=== PATIENT | male | born 1960 | race Caucasian/White ===

== ENCOUNTER → 2017-09-24 | Outpatient (CLI) | payer OTHER | LOC: CPRE 11:46 | PROVIDERS: ATTEND Orthopaedic Surgery Sports Medicine | DX: M16.11 Unilateral primary osteoarthritis, right hip (principal) ==

== ENCOUNTER 2017-10-11 05:05 | Inpatient (IN) | payer OTHER ==
[~2017-10-11] VITALS: Ht 165.1 cm; Wt 91.0 kg
[2017-10-11] MEDS ORDERED: SODIUM CHLORID 0.9% 500 ML IV PRN (05:45)
[2017-10-11] MEDS ORDERED: POVIDONE IODINE 5% (ANTISEPSIS KIT) 4 APPLICATIONS EACH NARE PRN (05:45)
[2017-10-11] MEDS ORDERED: EXPAREL PERI-ARTICULAR INJECTION (TOTAL VOL. 60 ML) P-ARTICULR SCH ×2 (05:45)
[2017-10-11] MEDS ORDERED: TRANEXAMIC PERI-ARTICULAR 3,000 MG/NS 100 ML P-ARTICULR SCH ×2 (05:45)
[2017-10-11] MEDS ORDERED: CHLORHEXIDINE GLUCONATE 2 % 1 PACK (2 CLOTHS) TOPICAL PRN (05:45)
[2017-10-11] MEDS ORDERED: POVIDONE IODINE 7.5% SCRUB 118 ML BOTTLE TOPICAL SCH (05:45)
[2017-10-11] MEDS ORDERED: ceFAZolin 2 GM PREMIX 50 ML IV SCH (05:45)
[2017-10-11] MEDS ORDERED: VANCOMYCIN 1000 MG/NS 250 ML (for <70 kg) IV SCH ×2 (05:45)
[2017-10-11] MEDS ORDERED: METOPROLOL TARTRATE 25 MG TAB PO PRN (05:45)
[2017-10-11] MEDS ORDERED: LACTATED RINGER'S 1000 ML IV PRN (05:45)
[2017-10-11] MEDS ORDERED: CHLORHEXIDINE GLUCONATE 4% SOLN 120 ML BTL TOPICAL SCH (05:45)
[2017-10-11] MEDS ORDERED: DEXAMETHASONE SOD PHOS 20 MG/5 ML VIAL IV PUSH SCH (05:45)
[2017-10-11] MEDS ORDERED: GENTAMICIN SULFATE 80 MG/2 ML VIAL ONE (06:15)
[2017-10-11] MEDS ORDERED: ACETAMINOPHEN 1000 MG/100 ML 100 ML IV ONE (06:41)
[2017-10-11] MEDS ORDERED: FAMOTIDINE 20 MG/2 ML VIAL ONE (06:41)
[2017-10-11] MEDS ORDERED: HYDR-3288 PO (06:56)
[2017-10-11] MEDS ORDERED: ASPI81CH6 CHEW (06:57)
[2017-10-11] MEDS ORDERED: TRANEXAMIC ACID INJ 1,400 MG in SODIUM CHLORIDE 0.9% INJ 100 ML IV SCH (07:00)
--- NOTE | 2017-10-11 07:01 | HHI.DCPOC ---
Discharge Care Plan Diagnosis: (1) Primary localized osteoarthrosis, pelvic region and thigh Your Health Problems Are: Difficulty with ADL Goals to Promote Your Health * To prevent worsening of your condition and complications * To maintain your health at the optimal level Directions to Meet Your Goals Take your medications as prescribed Follow your dietary instruction Follow activity as directed Keep your appointments as scheduled Take your immunizations and boosters as scheduled If your symptoms worsen call your PCP, if no PCP go to Urgent Care Center or Emergency Room Smoking is Dangerous to Your Health. Avoid second hand smoke Call the 24-hour hour crisis hotline for domestic abuse at Alphonso Verma Oct 11, 2017 07:01
--- NOTE | 2017-10-11 07:01 | HHI.FF ---
Face to Face Verification Diagnosis: (1) Primary localized osteoarthrosis, pelvic region and thigh Physical Therapy Gait training, Safety evaluation, Transfer training, bed to chair Hip: Total hip, Protocol: Right Right LE Weight Bearing: WB as tolerated Nursing RN: 3 days/week x 2 weeks Nursing: Dressing changes Dressing Changes: Daily dressing change I have seen patient Migue Escalante on 10/11/17. My clinical findings support the need for the requested home health care services because: Limited ability to care for self High risk of falls I certify that my clinical findings support that this patient is homebound because: Post-op weakness Unsteady gait/balance Alphonso Verma Oct 11, 2017 07:01
[2017-10-11] MEDS ORDERED: ACETAMINOPHEN/HYDROcodone 325 MG/10 MG TAB PO PRN (07:30)
[2017-10-11] MEDS ORDERED: diphenhydrAMINE HCL 50 MG/ML VIAL IV PUSH PRN (07:30)
[2017-10-11] MEDS ORDERED: ONDANSETRON HCL 4 MG/2 ML VIAL IVP PRN (07:30)
[2017-10-11] MEDS ORDERED: MORPHINE SULFATE 4 MG/ML INJ IV PUSH PRN (07:30)
[2017-10-11] MEDS ORDERED: BISACODYL 10 MG SUPP RECTAL PRN (07:45)
[2017-10-11] MEDS ORDERED: Post-op Orders (for Pharmacy) XX ONE (08:00)
[2017-10-11] MEDS ORDERED: *MEPERIDINE 25 MG INJ VIAL PERIprocedural Use ONLY ONE (09:12)
[2017-10-11] MEDS ORDERED: *ONDANSETRON 4 MG VIAL PERIprocedural Use ONLY ONE (09:15)
--- NOTE | 2017-10-11 09:15 | RADRPT ---
EXAM DATE/TIME: 10/11/2017 07:25 [facility] COMPARISON: No previous studies available for comparison. INDICATIONS : Right total hip replacement. MEDICAL HISTORY : None. SURGICAL HISTORY : None. ENCOUNTER: Initial ACUITY: 1 day PAIN SCORE: Non-responsive. LOCATION: Right Hip FINDINGS: 3 spot intraoperative fluoroscopic views of the right hip demonstrate a total hip arthroplasty. No ob vious fractures are seen. CONCLUSION: Right total hip arthroplasty. Miky Garcia MD on October 11, 2017 at 9:13 Board Certified Radiologist. This report was verified electronically.
[2017-10-11] MEDS ORDERED: MIDAZOLAM HCL 2 MG/2 ML VIAL ONE (09:18)
--- NOTE | 2017-10-11 09:21 | MP ---
cc: Alphonso Umanzor MD DATE OF OPERATION: 10/11/2017 PREOPERATIVE DIAGNOSIS: Right hip osteoarthritis. POSTOPERATIVE DIAGNOSIS: Right hip osteoarthritis. PROCEDURE: Right total hip arthroplasty, anterior approach. SURGEON: Alphonso Umanzor MD DOPE POURER: Alphonso Verma, physician graduate assistant certified. ANESTHESIA: General. ESTIMATED BLOOD LOSS: 200 cc. COMPLICATIONS: None. IMPLANTS USED: DePuy Attune size 11 Press-Fit Cor[place] centered offset, femoral stem size 56, solid [place] Gription cup, 36-mm highly cross-linked polyethylene neutral liner, 36-mm ceramic head, +5 neck. JUSTIFICATION: This patient is a 57-year-old male with history of severe end-stage osteoarthritis of the right hip joint with elements of osteonecrosis and collapsed. He has severe pain with standing, walking, weight-bearing activities and severe pain at rest. His pain interferes with activities of daily living. He has failed greater than three months of nonoperative conservative treatment to include medication therapy, injections, assistive ambulatory aids, home exercise program, activity modification and weight loss. X-rays of the right hip reveal severe end-stage osteoarthritis and [id number] joint space narrowing, subchondral sclerosis, subchondral cysts, osteophyte formation, severe subluxation and collapse with fragmentation of the femoral head. The patient was counseled as to the risks, benefits and alternatives to a total hip arthroplasty. The risks were discussed which include but not limited to bleeding, infection, damage to nerves, blood vessels, pain, stiffness, fracture dislocation, leg length discrepancy, blood clots, pulmonary embolism and even . The patient states he favored the risks over the benefits and did wish to proceed with surgery. PROCEDURE IN DETAIL: Written consent was obtained. The patient was identified by name, taken to the operating room, placed supine. General anesthesia was administered as well as 2 grams of IV Ancef and 1 gram of IV vancomycin. The right and left feet were placed in the padded traction boots. The right hip and right lower extremity were prepped and draped using Isopropyl alcohol, Hibiclens solution and ChloraPrep solution. After time-out was performed, a longitudinal incision was made over the anterior lateral aspect of the right hip. The fascial layer was incised, dissection carried over tensor fascia derick, beneath the rectus femoris to allow exposure of the anterior hip capsule. A capsulotomy incision was performed. An oscillating saw was used to perform a femoral neck cut. The osteoarthritic femoral head and neck component was removed. A 10-blade scalpel was used to excise the labrum. Sequential reaming began at size 49, was carried through a size 56. Subsequently a solid [place] Gription cup, size 56 was implanted in approximately 45 degrees of abduction and 10 degrees of anteversion. There was excellent purchase and fixation after insertion of the cup. A screw hole eliminator was placed followed by a neural liner. The liner was impacted in place and tested for stability. Attention was turned to the femur where the leg was externally rotated, extended and adducted. The capsule was released off the inner surface of the greater trochanter to allow for elevation and lateralization of the femur. An box-cutting osteotome was used to gain entrance into the intramedullary canal of the femur, followed by a canal finder, sequentially broached up to size 11. Calcar planer was used to plane the calcar. Trial head and neck combinations were evaluated and final components implanted. With the current components the leg could achieve external rotation of 70 degrees and extension all the way down to the ground without evidence of instability or impingement. Fluoroscopic imaging showed appropriate implantation of the components. The surgical wound was thoroughly irrigated with sterile saline pulse lavage antibiotic impregnated solution. The fascial layer was closed with #1 Vicryl suture, the subcutaneous layer with 2-0 Vicryl suture, the skin incision closed with Dermabond. Sterile dressing was applied. The patient tolerated the procedure well with no intraoperative complication noted. Viktor Verma, physician graduate assistant certified, was present through the entire procedure to include patient positioning and the procedure itself. The medical necessity of a physician graduate assistant was indicated in this case due to complexity of the procedure. He assisted with appropriate manipulation of the leg and also retraction of muscle, tendon, bone and neurovascular structures. He assisted with preparation of bone and also implantation of the prosthetic replacement. MD FRANK Buitrago/MARY , 08:45 AM , 09:20 AM
[2017-10-11] MEDS: SODIUM CHLOR 0.9% 1000 ML INJ 1,000 ML IV SCH ×3 (09:28→20:47)
[2017-10-11] MEDS ORDERED: DO NOT ADM ANY ANTICOAGULANT DRUGS PRN (09:30)
[2017-10-11] MEDS ORDERED: *morphine SULFATE 10 MG/ML PERIprocedure ONLY ONE (09:53)
--- NOTE | 2017-10-11 10:51 | RADRPT ---
EXAM DATE/TIME: 10/11/2017 09:07 [facility] COMPARISON: HIP RIGHT (AP&LAT 2/3VWS) WO AP PELVIS, October 11, 2017, 7:25. INDICATIONS : Post-op total right hip arthroplasty. MEDICAL HISTORY : None. SURGICAL HISTORY : None. ENCOUNTER: Subsequent ACUITY: 1 day PAIN SCORE: 8/10 LOCATION: Right hip. FINDINGS: A right total hip arthroplasty is noted. The femoral and acetabular components appear well-seated. No fractures are identified. There is subcutaneous air seen about the right hip. CONCLUSION: Postoperative changes right total hip arthroplasty. Miky Garcia MD on October 11, 2017 at 10:49 Board Certified Radiologist. This report was verified electronically.
[2017-10-11 12:00] VITALS: BP 134/80; PULSE 93; RESP 16; TEMP 98.8; O2SAT 96
[2017-10-11] MEDS ORDERED: ONDANSETRON HCL 4 MG/2 ML VIAL IV ONE (12:00)
[2017-10-11] MEDS ORDERED: PROPOFOL 200 MG/20 ML AMP IV ONE (12:00)
[2017-10-11] MEDS ORDERED: LABETALOL HCL 100 MG/20 ML VIAL IV ONE (12:00)
[2017-10-11] MEDS ORDERED: ROCURONIUM INJ 50 MG/5 ML SYRINGE IV PUSH ONE (12:00)
[2017-10-11] MEDS ORDERED: GLYCOPYRROLATE 1 MG/5 ML SYRINGE IV PUSH ONE (12:00)
[2017-10-11] MEDS ORDERED: LACTATED RINGER'S 1000 ML INJ 1,000 ML IV ONE (12:00)
[2017-10-11] MEDS ORDERED: NEOSTIGMINE 5 MG/5 ML SYRINGE IV PUSH ONE (12:00)
[2017-10-11] MEDS ORDERED: LIDOCAINE HCL 1% PF 5 ML SYRINGE OTHER ONE (12:00)
[2017-10-11] MEDS: ceFAZolin 2 GM PREMIX 50 ML IV SCH ×3 (12:45→23:33)
[2017-10-11] MEDS: ACETAMINOPHEN/HYDROcodone 325 MG/10 MG TAB PO PRN ×2 (15:35→20:47)
[2017-10-11 16:00] VITALS: BP 144/76; PULSE 78; RESP 17; TEMP 96; O2SAT 98
[2017-10-11 20:00] VITALS: BP 112/71; PULSE 80; RESP 20; TEMP 99.6; O2SAT 98
[2017-10-11] MEDS ORDERED: ZOLPIDEM TARTRATE 5 MG TAB PO PRN (21:00)
[2017-10-12] VITALS: BP 108/67; PULSE 68; RESP 20; TEMP 97; O2SAT 96
[2017-10-12] MEDS: SODIUM CHLOR 0.9% 1000 ML INJ 1,000 ML IV SCH ×2 (03:19→08:26)
[2017-10-12 04:00] VITALS: BP 132/69; PULSE 75; RESP 18; TEMP 98.1; O2SAT 98
[2017-10-12] MEDS: ACETAMINOPHEN/HYDROcodone 325 MG/10 MG TAB PO PRN ×3 (04:04→12:53)
[2017-10-12 04:47] LABS: HEMATOCRIT 36.5 % (39.0-51.0); HEMOGLOBIN 12.8 GM/DL (13.0-17.0); MEAN CELL VOLUME 94.3 FL (80.0-100.0); MEAN CORPUSCULAR HEMOGLOBIN 32.9 PG (27.0-34.0); MEAN CORPUSCULAR HGB CONC 34.9 % (32.0-36.0); MEAN PLATELET VOLUME 8.4 FL (7.0-11.0); PLATELET COUNT 289 TH/MM3 (150-450); RED BLOOD COUNT 3.87 MIL/MM3 (4.50-5.90); RED CELL DISTRIBUTION WIDTH 12.7 % (11.6-17.2); WHITE BLOOD COUNT 11.4 TH/MM3 (4.0-11.0)
[2017-10-12 05:06] LABS: CALCIUM 8.3 MG/DL (8.5-10.1); CREATININE 1.21 MG/DL (0.60-1.30)
[2017-10-12] MEDS ORDERED: ENOXAPARIN SODIUM 40 MG/0.4 ML SYRINGE SQ SCH (08:00)
--- NOTE | 2017-10-12 08:02 | PD.ORT.PN ---
Subjective Post Op Day #: 1 Subjective Remarks pain controlled. Objective Vitals Vital Signs Date Time Temp Pulse Resp B/P (MAP) Pulse Ox O2 Delivery O2 Flow Rate FiO2 10/12/17 04:00 98.1 75 18 132/69 (90) 98 10/12/17 00:00 97.0 68 20 108/67 (81) 96 10/11/17 20:00 98 Room Air 10/11/17 20:00 99.6 80 20 112/71 (85) 98 10/11/17 16:00 96.0 78 17 144/76 (98) 98 10/11/17 12:00 98.8 93 16 134/80 (98) 96 10/11/17 11:39 Nasal Cannula 2.00 10/11/17 11:30 98.7 77 16 122/73 (89) 98 Nasal Cannula 2 10/11/17 11:00 79 14 135/72 (93) 98 Nasal Cannula 2 10/11/17 10:30 85 15 146/76 (99) 98 Nasal Cannula 2 10/11/17 10:00 85 13 135/67 (89) 98 Nasal Cannula 2 10/11/17 09:45 88 14 152/77 (102) 97 Nasal Cannula 2 10/11/17 09:30 85 16 150/75 (100) 99 Nasal Cannula 3 10/11/17 09:15 89 15 155/80 (105) 99 Nasal Cannula 3 10/11/17 08:59 97.6 88 24 172/111 (131) 100 Simple Mask 8 I/O 10/11/17 10/11/17 10/11/17 10/12/17 10/12/17 10/12/17 07:00 15:00 23:00 07:00 15:00 23:00 Intake Total 2175 ml 1409 ml 1170 ml Output Total 840 ml 1100 ml 1000 ml Balance 1335 ml 309 ml 170 ml Intake Oral 515 ml 580 ml 480 ml IV Total 1660 ml 829 ml 690 ml Output Urine Total 640 ml 1100 ml 1000 ml Estimated Blood Loss 200 ml # Bowel Movements 0 0 Result Diagram: 10/12/17 04010/12/17 040 Objective Remarks in bed, nad dressing c/d/i thigh soft neg homans nvi Assessment & Plan Ortho Post Op Day #: 1 Problem List: Assessment and Plan s/p R MIO wbat ok to maintain dressing unless saturated lovenox, d/c on [id number] d/c planning home with [facility] and pt - cleared today f/up dr. rodriguez 2 weeks Alphonso Verma Oct 12, 2017 08:02
[2017-10-12 08:21] VITALS: BP 136/85; PULSE 75; RESP 20; TEMP 99.6; O2SAT 97
[2017-10-12 12:00] VITALS: BP 151/94; PULSE 80; RESP 20; TEMP 97.6; O2SAT 95
[2017-10-12] MEDS ORDERED: DOCUSATE SODIUM 100 MG CAP PO SCH (21:00)
[2017-10-12] MEDS ORDERED: MULTIVITAMINS/MINERALS THERAPEUTIC TAB PO SCH (21:00)
== END 2017-10-12 14:09 | disposition home health service (06) | DRG 470 ==
LOC: HSDI 05:05 → N06A 12:03
PROVIDERS: ADMIT Orthopaedic Surgery Sports Medicine; ATTEND Orthopaedic Surgery Sports Medicine
PROC: 0SR904A Replacement of Right Hip Joint with Ceramic on Polyethylene Synthetic Substitute, Uncemented, Open Approach (ICD-10-PCS; principal; 2017-10-11 06:55)
DX: M16.11 Unilateral primary osteoarthritis, right hip (principal); M87.9 Osteonecrosis, unspecified; K21.9 Gastro-esophageal reflux disease without esophagitis; Z87.891 Personal history of nicotine dependence
CPT/HCPCS: 73502; 76000; 80048; 85027; 86850; 86900; 86901; 94150; C1776; J0131; J0690; J1100; J1580; J1650; J2175; J2250; J2270; J2405; J2710; J3010; J3370; J7030; J7050; J7120